=== PATIENT | female | born 1975 | race Caucasian/White ===

== ENCOUNTER 2016-12-07 11:28 | Emergency (ER) | payer SELFPAY ==
[2016-12-07] MEDS ORDERED: Adacel (T-DAP) 0.5 ML VIAL ONE (12:16)
[2016-12-07] MEDS ORDERED: Ibuprofen 200 MG TAB ONE (12:16)
[2016-12-07] MEDS ORDERED: Bacitracin Zinc 1 Packet ONE (12:22)
== END 2016-12-07 12:30 | disposition home or self-care (01) ==
LOC: NAV ERS 11:28
DX: S81.831A Puncture wound without foreign body, right lower leg, initial encounter (principal); F17.210 Nicotine dependence, cigarettes, uncomplicated; X58.XXXA Exposure to other specified factors, initial encounter
CPT/HCPCS: 90471; 90715